=== PATIENT | female | born 1940 | race Caucasian/White ===

== ENCOUNTER 2016-12-19 10:36 | Emergency (ER) | payer OTHER ==
[2016-12-19 11:27] VITALS: BP 186/67; PULSE 84; RESP 16; TEMP 98.1; O2SAT 96
[2016-12-19 11:50] LABS: COLOR YELLOW; LEUKOCYTE ESTERASE,URINE TRACE (NEGATIVE); NITRITE,URINE NEGATIVE (NEGATIVE)
[2016-12-19 12:05] LABS: BACTERIA TRACE /hpf (NONE SEEN); RBC,URINE 0-1 /hpf (0-3); RENAL EPITHELIAL CELLS OCCASIONAL /hpf (NONE SEEN)
--- NOTE | 2016-12-19 13:04 | UCPHY ---
H & P Time Seen by Provider: 12/19/16 12:34 Patient Type: Established HPI/ROS: 75-year-old female presents complaining urinary frequency. No fevers or chills no nausea vomiting diarrhea. No abdominal pain, no flank pain Review of systems General no fever no chills no weakness HEENT no eye pain no eye discharge. No eye redness, no sore throat Respiratory no cough, no shortness of breath Cardiac no chest pain, no peripheral edema GI no abdominal pain, no diarrhea, no constipation, no nausea, no vomiting no flank pain, no hematuria, positive dysuria Musculoskeletal no myalgias, no joint pain Heme no easy bruising, no easy bleeding Endo no polyuria, no polydipsia Skin no rashes, no pruritus Neuro no syncope, no dizziness, no headaches Psych is no suicidal ideation, no homicidal ideation Past Medical/Surgical History: Hypertension Social History: Denies alcohol denies drug use Smoking Status: Never smoked Physical Exam: 75-year-old female Female alert and oriented in no acute distress nontoxic appearance, afebrile Atraumatic normocephalic Neck supple Lungs clear to auscultation bilaterally Heart regular rate and rhythm Abdomen normoactive bowel sounds soft mild suprapubic tenderness no guarding no rebound Back no CVA tenderness Extremities no cyanosis clubbing or edema Skin no rash Constitutional: Initial Vital Signs Temperature (C) 36.7 C 12/19/16 11:21 Heart Rate 84 12/19/16 11:21 Respiratory Rate 16 12/19/16 11:21 Blood Pressure 186/67 H 12/19/16 11:21 O2 Sat (%) 96 12/19/16 11:21 O2 Delivery Mode Room Air Allergies/Adverse Reactions: cimetidine [Cimetidine] Allergy (Severe, Verified 12/19/16 11:20) CHEST PAIN Sulfa (Sulfonamide Antibiotics) Allergy (Severe, Verified 12/19/16 11:20) Swelling/neck,face,throat amlodipine besylate [From Norvasc] Allergy (Verified 12/19/16 11:20) enalapril [Enalapril] Allergy (Verified 12/19/16 11:20) nitrofurantoin Allergy (Verified 12/19/16 11:20) Home Medications: Medication Instructions Recorded Ascorbic Acid [Vitamin C 500 mg 1,000 mg PO DAILY 03/20/14 (*)] Calcium Carbonate/Vitamin D3 1 each PO DAILY 03/20/14 [Calcium 600 + Vit D 400 Softgl] Levothyroxine [Synthroid 125 mcg 125 mcg PO DAILY06 03/20/14 (*)] Lisinopril [Zestril 20 mg (*)] 20 mg PO DAILY 03/20/14 Multivitamins [Multivitamin (*)] 1 each PO DAILY 03/20/14 Vitamin E [Vitamin E 400 units] 400 unit PO DAILY 03/20/14 Cephalexin 500 mg PO TID #21 tablet 12/19/16 Phenazopyridine HCl 200 mg PO TID #6 tab 12/19/16 [Phenazopyridine] Medical Decision Making ED Course/Re-evaluation: Patient seen and evaluated for urinary frequency Physical exam benign No associated symptoms Urine consistent with urinary tract infection Urine culture pending Impression UTI Plan Cephalexin Phenazopyridine Follow-up primary care physician - Data Points Medications Given: Discontinued Medications Cephalexin HCl (Keflex) 500 mg PO EDNOW ONE PRN Reason: Protocol Stop: 12/19/16 13:06 Last Admin: 12/19/16 13:20 Dose: 500 mg Phenazopyridine HCl (Pyridium) 200 mg PO EDNOW ONE Stop: 12/19/16 13:07 Last Admin: 12/19/16 13:20 Dose: 200 mg Departure - Departure Disposition: Home, Routine, Self-Care Clinical Impression: Urinary tract infection Condition: Good Instructions: Urinary Tract Infection in Women (ED) Referrals: Tamar Tyler MD [Primary Care Provider] - As per Instructions Prescriptions: Cephalexin 500 mg PO TID #21 tablet Phenazopyridine HCl [Phenazopyridine] 200 mg PO TID #6 tab - PQRS PQRS Measurement: 134: Depression screening and followup, PRIME MD-PHQ2 (12 years and older) Over the last 2 weeks, how often have you been bothered by any of the following problems? 1. Feeling down, depressed, or hopeless? 2. Little interest or pleasure in doing things? Patient answered no to both 1 and 2 130: Documentation of medications. Reviewed all patient medications, doses, route and frequency. 226: Do you smoke? No. 47: 65 and older: Advanced care planning. Patient designates surrogate decision maker as spouse.. [Patient has advanced directive.] 51: 18 years old and older with diagnosis of COPD, spirometry performance. [Patient has no history of COPD 52: 18 years old and older with COPD and symptoms of COPD or FEV1<60% predicted prescribed a B Agonist. [Spirometry not performed; equipment not available.]
[2016-12-19] MEDS ORDERED: CEPHALEXIN 500 MG CAP PO ONE (13:05)
[2016-12-19] MEDS ORDERED: PHENAZOPYRIDINE HCL 200 MG TAB PO ONE (13:06)
== END 2016-12-19 13:20 | disposition home or self-care (01) ==
LOC: CED 10:36
DX: N39.0 Urinary tract infection, site not specified (principal); I10 Essential (primary) hypertension
CPT/HCPCS: 81003-PO; 81015-PO; G0463-PO

== ENCOUNTER 2017-04-29 12:28 | Inpatient (IN) | payer OTHER ==
[2017-04-29 14:24] LABS: % IMMATURE GRANULYOCYTES 0.3 % (0.0-1.1); ABSOLUTE IMMATURE GRANULOCYTES 0.04 10^3/uL (0.00-0.10); ADD DIFF? NO; ADD MORPH? NO; ADD SCAN? NO; ATYPICAL LYMPHOCYTE FLAG 10 (0-99); FRAGMENT RBC FLAG 0 (0-99); HEMATOCRIT 40.4 % (38.0-47.0); HEMOGLOBIN 13.6 g/dL (12.6-16.3); LEFT SHIFT FLG 0 (0-99); LIPEMIA HEMOLYSIS FLAG 80 (0-99); MEAN CELL HEMOGLOBIN 31.1 pg (27.9-34.1); MEAN CELL HEMOGLOBIN CONCENTR. 33.7 g/dL (32.4-36.7); MEAN CELL VOLUME 92.4 fL (81.5-99.8); MEAN PLATELET VOLUME 9.7 fL (8.7-11.7); PLATELET CLUMPS FLAG 30 (0-99); PLATELET COUNT 265 10^3/uL (150-400); RED BLOOD CELL COUNT 4.37 10^6/uL (4.18-5.33); RED CELL DISTRIBUTION WIDTH 13.2 % (11.5-15.2)
[2017-04-29 14:31] LABS: ALANINE AMINOTRANSFERASE 51 IU/L (9-52); ALBUMIN 4.3 g/dL (3.5-5.0); ALKALINE PHOSPHATASE 102 IU/L (38-126); ANION GAP 13 mEq/L (8-16); ASPARTATE AMINOTRANSFERASE 46 IU/L (14-46); BILIRUBIN,TOTAL 0.8 mg/dL (0.1-1.4); BILIRUBIN-CONJUGATED 0.5 mg/dL (0.0-0.5); BILIRUBIN-UNCONJUGATED 0.3 mg/dL (0.0-1.1); CALCIUM 9.8 mg/dL (8.5-10.4); CARBON DIOXIDE 20 mEq/l (22-31); CHLORIDE 105 mEq/L (97-110); CREATININE 0.8 mg/dL (0.6-1.0); GLOMERULAR FILTRATION RATE > 60; GLUCOSE 101 mg/dL (70-100); SODIUM 138 mEq/L (134-144); TOTAL PROTEIN 7.2 g/dL (6.3-8.2)
--- NOTE | 2017-04-29 14:41 | CPEKG ---
Heart Rate: 80 RR Interval: 750 P-R Interval: 172 QRSD Interval: 138 QT Interval: 424 QTC Interval: 490 P [place]: 60 QRS [place]: -31 T Wave [place]: 11 EKG Severity - ABNORMAL ECG - EKG Impression: SINUS RHYTHM EKG Impression: RIGHT BUNDLE BRANCH BLOCK EKG Impression: PROBABLE INFERIOR INFARCT, AGE INDETERMINATE Electronically Signed By: Renetta Lopez 29-Apr-2017 15:37:30
[2017-04-29 14:43] LABS: TROPONIN I < 0.012 ng/mL (0-0.034)
[2017-04-29 14:45] LABS: INR 1.07 (0.83-1.16); PROTIME(PATIENT) 13.8 SEC (12.0-15.0)
[2017-04-29 14:46] LABS: APTT 24.8 SEC (23.0-38.0)
--- NOTE | 2017-04-29 15:13 | EDPHY ---
H & P Time Seen by Provider: 04/29/17 13:26 HPI/ROS: CHIEF COMPLAINT: Right leg pain and swelling HISTORY OF PRESENT ILLNESS: Patient is a 76-year-old female who presents emergency department with multiple plates. She states over the past 3 weeks she has had increased swelling of her right lower extremity. She also has significant pain over her right upper leg and behind her right knee. She feels as though it is worse when she ambulates. She reports that her leg has become discolored while ambulating. Over the past week she has noticed mild swelling of her left lower extremity as well. She has had no shortness of breath or chest pain. No fevers or chills. No recent travel. No trauma. REVIEW OF SYSTEMS: My complete review of systems is negative except as mentioned in the HPI. Past Medical/Surgical History: Includes coronary artery disease, diabetes type 2, hyperlipidemia, hypertension , hypothyroidism, obesity Past surgical history: Appendectomy, tonsillectomy Social history: Patient does not smoke Smoking Status: Never smoked Physical Exam: 36.4, 179/77, 86, 20, 95% on room air GENERAL: Well-appearing, in no acute distress, alert. Obese. HEENT: Eyes normal to inspection, normal pharynx, no signs of dehydration. NECK: No thyromegaly, no lymphadenopathy, supple. RESPIRATORY: Clear to auscultation bilaterally, no rales, rhonchi or wheezing. CVS: Regular rate and rhythm, no rubs, murmurs, or gallops. ABDOMEN: Soft, nontender, nondistended, no organomegaly. BACK: Normal to inspection, no CVA tenderness. SKIN: Normal color, no rash, warm, dry. No pallor. EXTREMITIES: Mild bilateral pedal edema, right greater than left. Mild tenderness palpation posterior to the right knee. No palpable mass. No calf tenderness, no Homans sign or cords, no joint swelling. There is no erythema or warmth. NEURO/PSYCH: Alert and oriented , normal mood and affect, normal motor sensory exam. No obvious cranial nerve deficit. Constitutional: Initial Vital Signs Temperature (C) 36.4 C 04/29/17 12:33 Heart Rate 86 04/29/17 12:33 Respiratory Rate 20 04/29/17 12:33 Blood Pressure 179/77 H 04/29/17 12:33 O2 Sat (%) 95 04/29/17 12:33 O2 Delivery Mode Room Air Allergies/Adverse Reactions: cimetidine [Cimetidine] Allergy (Severe, Verified 04/29/17 12:32) CHEST PAIN Sulfa (Sulfonamide Antibiotics) Allergy (Severe, Verified 04/29/17 12:32) Swelling/neck,face,throat amlodipine besylate [From Norvasc] Allergy (Verified 04/29/17 12:32) enalapril [Enalapril] Allergy (Verified 04/29/17 12:32) nitrofurantoin Allergy (Verified 04/29/17 12:32) Home Medications: Medication Instructions Recorded Ascorbic Acid [Vitamin C 500 mg 1,000 mg PO DAILY 03/20/14 (*)] Calcium Carbonate/Vitamin D3 1 each PO DAILY 03/20/14 [Calcium 600 + Vit D 400 Softgl] Levothyroxine [Synthroid 125 mcg 125 mcg PO DAILY06 03/20/14 (*)] Lisinopril [Zestril 20 mg (*)] 20 mg PO DAILY 03/20/14 Multivitamins [Multivitamin (*)] 1 each PO DAILY 03/20/14 Vitamin E [Vitamin E 400 units] 400 unit PO DAILY 03/20/14 Medical Decision Making ED Course/Re-evaluation: In the emergency department I discussed possible etiologies with the patient and family. I answered all her questions. IV was placed. Laboratory studies, EKG, chest x-ray and ultrasound right lower extremity were ordered. EKG: Sinus rhythm at 80. Right bundle branch block. Q-wave in III, AVF. I compared this with an old EKG. The Q-waves were previously present and there was a right bundle branch block. I reviewed the patient's laboratory studies. White count was mildly elevated at 12. She is not anemic. Platelets are normal. Her chemistry panel is normal except for mildly low bicarb. Patient's troponin is negative. BNP is normal. Chest x-ray: Please refer to the dictated report. No acute disease noted. I discussed the results with the patient thus far. She stated it was extremely painful in the right lower extremity when she had ultrasound. This made her mildly dizzy. She states that she is unable to move about in her home due to the pain and unsteady gait. I discussed case with the hospitalist service. Patient will be admitted for further observation and care. Differential Diagnosis: My differential includes but is not limited to DVT, Acevedo cyst, peripheral vascular disease, arterial occlusion, cellulitis, CHF, ACS, acute IL, electrolyte abnormality, sugar abnormality - Data Points Laboratory Results: Laboratory Results 04/29/17 14:00 04/29/17 14:00 04/29/17 04/29/17 04/29/17 14:00 14:00 14:00 WBC 12.03 10^3/uL H 10^3/uL (3.80-9.50) RBC 4.37 10^6/uL 10^6/uL (4.18-5.33) Hgb 13.6 g/dL g/dL (12.6-16.3) Hct 40.4 % % (38.0-47.0) MCV 92.4 fL fL (81.5-99.8) MCH 31.1 pg pg (27.9-34.1) MCHC 33.7 g/dL g/dL (32.4-36.7) RDW 13.2 % % (11.5-15.2) Plt Count 265 10^3/uL 10^3/uL (150-400) MPV 9.7 fL fL (8.7-11.7) Neut % (Auto) 63.5 % % (39.3-74.2) Lymph % (Auto) 25.9 % % (15.0-45.0) [place] % (Auto) 8.5 % % (4.5-13.0) Eos % (Auto) 1.4 % % (0.6-7.6) Baso % (Auto) 0.4 % % (0.3-1.7) Nucleat RBC Rel Count 0.0 % % (0.0-0.2) Absolute Neuts (auto) 7.64 10^3/uL H 10^3/uL (1.70-6.50) Absolute Lymphs (auto) 3.11 10^3/uL H 10^3/uL (1.00-3.00) Absolute Monos (auto) 1.02 10^3/uL H 10^3/uL (0.30-0.80) Absolute Eos (auto) 0.17 10^3/uL 10^3/uL (0.03-0.40) Absolute Basos (auto) 0.05 10^3/uL 10^3/uL (0.02-0.10) Absolute Nucleated RBC 0.00 10^3/uL 10^3/uL (0-0.01) Immature Gran % 0.3 % % (0.0-1.1) Immature Gran # 0.04 10^3/uL 10^3/uL (0.00-0.10) PT 13.8 SEC SEC (12.0-15.0) INR 1.07 (0.83-1.16) APTT 24.8 SEC SEC (23.0-38.0) D-Dimer 0.47 ug/mLFEU ug/mLFEU (0.00-0.50) Sodium 138 mEq/L mEq/L (134-144) Potassium 4.0 mEq/L mEq/L (3.5-5.2) Chloride 105 mEq/L mEq/L (97-110) Carbon Dioxide 20 mEq/l L mEq/l (22-31) Anion Gap 13 mEq/L mEq/L (8-16) BUN 12 mg/dL mg/dL (7-23) Creatinine 0.8 mg/dL mg/dL (0.6-1.0) Estimated GFR > 60 Glucose 101 mg/dL H mg/dL (70-100) Calcium 9.8 mg/dL mg/dL (8.5-10.4) Total Bilirubin 0.8 mg/dL mg/dL (0.1-1.4) Conjugated Bilirubin 0.5 mg/dL mg/dL (0.0-0.5) Unconjugated Bilirubin 0.3 mg/dL mg/dL (0.0-1.1) AST 46 IU/L IU/L (14-46) ALT 51 IU/L IU/L (9-52) Alkaline Phosphatase 102 IU/L IU/L (38-126) Troponin I < 0.012 ng/mL ng/mL (0-0.034) NT-Pro-B Natriuret Pep 161 pg/mL pg/mL (0-450) Total Protein 7.2 g/dL g/dL (6.3-8.2) Albumin 4.3 g/dL g/dL (3.5-5.0) Departure - Departure Disposition: [facility] Clinical Impression: Pedal edema, Right leg pain Condition: Good Instructions: Leg Edema (ED), Leg Pain (ED) Additional Instructions: Return with increasing pain, shortness of breath, fever, redness of the leg or any other concerns. Referrals: Tamar Tyler MD [Primary Care Provider] - 1-2 days without fail
[2017-04-29] MEDS ORDERED: NS 1,000 ML IV ONE (15:45)
[2017-04-29] MEDS ORDERED: ONDANSETRON 4 MG/2 ML VIAL IVP ONE (15:45)
[2017-04-29] MEDS ORDERED: ONDANSETRON 4 MG/2 ML VIAL ONE (15:48)
[2017-04-29] MEDS ORDERED: ACETAMINOPHEN 325 MG TAB PO PRN (16:27)
[2017-04-29] MEDS ORDERED: ONDANSETRON 4 MG/2 ML VIAL IVP PRN (16:27)
[2017-04-29] MEDS ORDERED: ONDANSETRON DISINTEGRATING 4 MG TAB PO PRN (16:27)
[2017-04-29] MEDS ORDERED: FUROSEMIDE 40 MG/4 ML VIAL IVP ONE (16:34)
--- NOTE | 2017-04-29 17:13 | PDGENHP ---
History and Physical - Chief Complaint Acute leg pain - History of Present Illness Primary care provider: Dr. Tyler Primary able seaman: Dr. Sánchez HPI: 76-year-old female presenting with acute leg pain characterized as a burning sensation located all along the distal right lower extremity extending into her post patella area and radiating into her proximal inguinal area. It is associated with significant edema and erythema located at the distal right lower extremity. Onset of symptoms was 3 weeks ago and duration has been persistent worsening thereafter. She reports that the pain is exacerbated by ambulating, bearing weight on her right lower extremity, so much so that she is currently unable to ambulate. Several days prior she did note that both of her ankles appear to be discolored as well, described as bluish. Her urine output has remained unchanged, she has not had any overt chest pain, but she has had some shortness of breath which is exacerbated by exertion and she feels like her exercise tolerance is somewhat reduced. She also notes lower abdominal distension and poor appetite. She has not recently changed any of her medications other than recently discontinuing Tylenol after her primary care provider informed her that her liver panel was somewhat abnormal. She does not take any NSAIDs. History Information - Allergies/Home Medication List Allergies/Adverse Reactions: cimetidine [Cimetidine] Allergy (Severe, Verified 04/29/17 12:32) CHEST PAIN Sulfa (Sulfonamide Antibiotics) Allergy (Severe, Verified 04/29/17 12:32) Swelling/neck,face,throat amlodipine besylate [From [facility]] Allergy (Verified 04/29/17 12:32) enalapril [Enalapril] Allergy (Verified 04/29/17 12:32) nitrofurantoin Allergy (Verified 04/29/17 12:32) Home Medications: Ascorbic Acid [Vitamin C 500 mg (*)] 1,000 mg PO DAILY 04/29/17 [Last Taken 07/08] Herbals/Supplements -Info Only 1 ea PO DAILY 04/29/17 [Last Taken Unknown] Levothyroxine [Synthroid 125 mcg (*)] 125 mcg PO DAILY06 04/29/17 [Last Taken ] Lisinopril [Zestril 20 mg (*)] 20 mg PO DAILY 04/29/17 [Last Taken 04/29/17] Multivitamins [Multivitamin (*)] 1 each PO DAILY 04/29/17 [Last Taken 04/29/17] I have personally reviewed and updated: family history, medical history, social history, surgical history - Past Medical History coronary artery disease (With previous cardiac catheterization, no stents placed , does not take aspirin secondary to GERD), diabetes type 2, GERD (With esophageal spasm), hypertension Additional medical history: Diverticulitis. Hypothyroidism - Surgical History Reports: appendectomy - Family History Additional family history: No family history of atrial fibrillation - Social History Smoking Status: Never smoked Alcohol Use: None Drug Use: None Additional social history: Currently cannot walk Review of Systems ROS: 10pt was reviewed & negative except for what was stated in HPI & below Cardiac: Reports: edema (Bilateral lower extremities) Respiratory: Reports: shortness of breath (With exertion) Muscolosketal: Reports: other (Right lower extremity pain) Physical Exam Temp Pulse Resp BP Pulse Ox 37 C 78 20 154/78 H 98 04/29/17 17:03 04/29/17 17:03 04/29/17 17:03 04/29/17 17:03 04/29/17 17:03 Constitutional: no apparent distress, obese, uncomfortable, No not in pain ( Moderate) Eyes: PERRL, anicteric sclera, EOMI Ears, Nose, Mouth, Throat: moist mucous membranes, hearing normal, ears appear normal, no oral mucosal ulcers Cardiovascular: systolic murmur (Distant, 1/6 at the sternum), JVD, edema (2+ right lower extremity, 1+ left lower extremity), No irregularly irregular Respiratory: no respiratory distress, no rales or rhonchi, clear to auscultation Gastrointestinal: normoactive bowel sounds, soft, non-tender abdomen, no palpable masses, distension (Mild to moderate), No guarding Genitourinary: other (Some blistering and skin irritation in the inguinal folds under her pannus) Skin: other (Blanchable erythema right lower extremity from approximately the mid right foot to the mid right calf, no open wounds along the right lower extremity but there are to red papules along the lateral aspect of the right mid calf) Musculoskeletal: other (Over the right lateral trochanteric bursa, in the right post patella area) Neurologic: AAOx3, sensation intact bilaterally, other (Motor exam limited secondary to pain in the lower extremities), No facial droop Psychiatric: not encephalopathic, thought process linear, anxious, No agitated Lab Data & Imaging Review 04/29/17 14:00 04/29/17 14:00 WBC 12.03 10^3/uL (3.80-9.50) H 04/29/17 14:00 RBC 4.37 10^6/uL (4.18-5.33) 04/29/17 14:00 Hgb 13.6 g/dL (12.6-16.3) 04/29/17 14:00 Hct 40.4 % (38.0-47.0) 04/29/17 14:00 MCV 92.4 fL (81.5-99.8) 04/29/17 14:00 MCH 31.1 pg (27.9-34.1) 04/29/17 14:00 MCHC 33.7 g/dL (32.4-36.7) 04/29/17 14:00 RDW 13.2 % (11.5-15.2) 04/29/17 14:00 Plt Count 265 10^3/uL (150-400) 04/29/17 14:00 MPV 9.7 fL (8.7-11.7) 04/29/17 14:00 Neut % (Auto) 63.5 % (39.3-74.2) 04/29/17 14:00 Lymph % (Auto) 25.9 % (15.0-45.0) 04/29/17 14:00 [place] % (Auto) 8.5 % (4.5-13.0) 04/29/17 14:00 Eos % (Auto) 1.4 % (0.6-7.6) 04/29/17 14:00 Baso % (Auto) 0.4 % (0.3-1.7) 04/29/17 14:00 Nucleat RBC Rel Count 0.0 % (0.0-0.2) 04/29/17 14:00 Absolute Neuts (auto) 7.64 10^3/uL (1.70-6.50) H 04/29/17 14:00 Absolute Lymphs (auto) 3.11 10^3/uL (1.00-3.00) H 04/29/17 14:00 Absolute Monos (auto) 1.02 10^3/uL (0.30-0.80) H 04/29/17 14:00 Absolute Eos (auto) 0.17 10^3/uL (0.03-0.40) 04/29/17 14:00 Absolute Basos (auto) 0.05 10^3/uL (0.02-0.10) 04/29/17 14:00 Absolute Nucleated RBC 0.00 10^3/uL (0-0.01) 04/29/17 14:00 Immature Gran % 0.3 % (0.0-1.1) 04/29/17 14:00 Immature Gran # 0.04 10^3/uL (0.00-0.10) 04/29/17 14:00 PT 13.8 SEC (12.0-15.0) 04/29/17 14:00 INR 1.07 (0.83-1.16) 04/29/17 14:00 APTT 24.8 SEC (23.0-38.0) 04/29/17 14:00 D-Dimer 0.47 ug/mLFEU (0.00-0.50) 04/29/17 14:00 Sodium 138 mEq/L (134-144) 04/29/17 14:00 Potassium 4.0 mEq/L (3.5-5.2) 04/29/17 14:00 Chloride 105 mEq/L (97-110) 04/29/17 14:00 Carbon Dioxide 20 mEq/l (22-31) L 04/29/17 14:00 Anion Gap 13 mEq/L (8-16) 04/29/17 14:00 BUN 12 mg/dL (7-23) 04/29/17 14:00 Creatinine 0.8 mg/dL (0.6-1.0) 04/29/17 14:00 Estimated GFR > 60 04/29/17 14:00 Glucose 101 mg/dL (70-100) H 04/29/17 14:00 Calcium 9.8 mg/dL (8.5-10.4) 04/29/17 14:00 Total Bilirubin 0.8 mg/dL (0.1-1.4) 04/29/17 14:00 Conjugated Bilirubin 0.5 mg/dL (0.0-0.5) 04/29/17 14:00 Unconjugated Bilirubin 0.3 mg/dL (0.0-1.1) 04/29/17 14:00 AST 46 IU/L (14-46) 04/29/17 14:00 ALT 51 IU/L (9-52) 04/29/17 14:00 Alkaline Phosphatase 102 IU/L (38-126) 04/29/17 14:00 Troponin I < 0.012 ng/mL (0-0.034) 04/29/17 14:00 NT-Pro-B Natriuret Pep 161 pg/mL (0-450) 04/29/17 14:00 Total Protein 7.2 g/dL (6.3-8.2) 04/29/17 14:00 Albumin 4.3 g/dL (3.5-5.0) 04/29/17 14:00 Visualized and Interpreted Chest x-ray results: Yes Chest X-Ray results: no infiltrate Visualized and Interpreted EKG results: Yes EKG Interpretation: Positive for: other (Right bundle branch block) Assessment & Plan Assessment: 76-year-old female presenting with acute suspected CHF exacerbation as well as possible concomitant cellulitis Plan: 1. Suspected diastolic CHF exacerbation. Acute, new problem this provider, further workup indicated. Evidenced by elevated systolic blood pressure in the 170s, lower extremity edema and abdominal swelling, suspect right-sided component given relatively clear chest x-ray but positive JVD, no recent echocardiograms. -get echocardiogram -if echo demonstrates obvious cause of her CHF, then no further workup but if the echo is relatively normal, then would recommend Lexiscan stress test given her known CAD and recent dyspnea on exertion, reduced exercise tolerance -suspect that her BNP is low secondary to her obesity -discussed with Dr. Lopez in the emergency department, he has reported to me that the ultrasound does not demonstrate any evidence of DVT although was a suboptimal study secondary to patient's pain with probe pressure -suspect that she has underlying sleep apnea and would benefit from outpatient sleep study, declining CPAP at this time -begin IV Lasix 40 mg twice daily, gauge effect, monitor daily weights, monitor potassium, magnesium, creatinine -hold lisinopril while diuresing, initiate once she is more euvolemic -hold on cardiology consultation until echo has been performed and is determine whether she has a clear cause of her edema 2. Possible cellulitis. Right lower extremity, in the setting of edema, evidenced by erythema, tenderness, several papules which may have been the source of skin breakage -she has not had any recent hospitalizations or identifiable MRSA exposures, placed on Ancef 2 g q.8h and monitor affect -continue to monitor CBC, currently has leukocytosis 3. Chronic coronary artery disease. Continue home medications, consider Lexiscan stress as outlined above -patient is not currently on aspirin secondary to GERD and esophageal spasm 4. GERD and esophageal spasm. Continue home medications once reconciled 5. Transaminitis. Patient reports she has hepatic steatosis although some of her transaminitis may be secondary to biliary and hepatic dilatation with fluid overload -order outside records from Dr. Matthews and repeat complete metabolic profile Diet. Cardiac Prophylaxis. High risk patient, Lovenox 40 Code. Full per patient, her and son are MPOA jointly Disposition. Anticipated discharge is uncertain this time, anticipated length stay is greater than 48 hours warranting inpatient admission status for acute CHF exacerbation, warranting further workup and IV diuretic treatment. I accidentally placed in observation order incorrectly and the patient should be inpatient admission status from the time of my initial admission order set.
[2017-04-29] MEDS: ceFAZolin 2 GM/DEXTROSE 100 ML IV SCH ×2 (18:06→22:12)
[2017-04-29] MEDS: NYSTATIN POWDER 15 GM BTL TP SCH (23:48)
[2017-04-30] MEDS: ceFAZolin 2 GM/DEXTROSE 100 ML IV SCH ×3 (05:29→22:35)
[2017-04-30 05:41] LABS: % IMMATURE GRANULYOCYTES 0.1 % (0.0-1.1); ABSOLUTE IMMATURE GRANULOCYTES 0.01 10^3/uL (0.00-0.10); ADD DIFF? NO; ADD MORPH? NO; ADD SCAN? NO; ATYPICAL LYMPHOCYTE FLAG 0 (0-99); FRAGMENT RBC FLAG 0 (0-99); HEMOGLOBIN 13.2 g/dL (12.6-16.3); LEFT SHIFT FLG 0 (0-99); LIPEMIA HEMOLYSIS FLAG 90 (0-99); MEAN CELL HEMOGLOBIN 31.2 pg (27.9-34.1); MEAN CELL HEMOGLOBIN CONCENTR. 33.8 g/dL (32.4-36.7); MEAN CELL VOLUME 92.2 fL (81.5-99.8); MEAN PLATELET VOLUME 9.7 fL (8.7-11.7); PLATELET CLUMPS FLAG 0 (0-99); PLATELET COUNT 289 10^3/uL (150-400); RED BLOOD CELL COUNT 4.23 10^6/uL (4.18-5.33); RED CELL DISTRIBUTION WIDTH 13.4 % (11.5-15.2)
[2017-04-30 05:54] LABS: ALANINE AMINOTRANSFERASE 48 IU/L (9-52); ALBUMIN 4.2 g/dL (3.5-5.0); ALKALINE PHOSPHATASE 89 IU/L (38-126); ANION GAP 15 mEq/L (8-16); ASPARTATE AMINOTRANSFERASE 38 IU/L (14-46); BILIRUBIN,TOTAL 0.8 mg/dL (0.1-1.4); CALCIUM 9.8 mg/dL (8.5-10.4); CARBON DIOXIDE 21 mEq/l (22-31); CHLORIDE 103 mEq/L (97-110); CREATININE 0.9 mg/dL (0.6-1.0); GLOMERULAR FILTRATION RATE > 60; GLUCOSE 133 mg/dL (70-100); MAGNESIUM 1.9 mg/dL (1.6-2.3); POTASSIUM 4.7 mEq/L (3.5-5.2); SODIUM 139 mEq/L (134-144)
[2017-04-30] MEDS ORDERED: LEVOTHYROXINE 125 MCG TAB PO SCH (06:00)
[2017-04-30] MEDS: ASCORBIC ACID 500 MG TAB PO SCH (08:14)
[2017-04-30] MEDS: ENOXAPARIN 40 MG/0.4 ML SYR SC SCH (08:14)
[2017-04-30] MEDS: MULTIVITAMINS 1 EACH TAB PO SCH (08:15)
[2017-04-30] MEDS: NYSTATIN POWDER 15 GM BTL TP SCH ×3 (08:18→22:35)
[2017-04-30] MEDS ORDERED: Herbals/Supplements -Info Only PO SCH (09:00)
[2017-04-30] MEDS ORDERED: FUROSEMIDE 40 MG/4 ML VIAL IVP SCH (09:00)
[2017-04-30] MEDS ORDERED: NS 1,000 ML IV ONE (11:55)
--- NOTE | 2017-04-30 13:31 | HOSPPROG ---
Hospitalist Progress Note Assessment/Plan: DIAGNOSES: -Acute right-sided congestive heart failure -Cellulitis of right leg -Known chronic pulmonary hypertension -Strongly suspect sleep apnea - undertreated hypothyroidism -Obesity I did review her hospital records from a visit here in 2009. At that time she had documented moderately severe pulmonary hypertension with right heart catheter. I believe she has sleep apnea and possibly obesity hypoventilation syndrome leading to chronic and worsening pulmonary hypertension. This is lead at this time to right-sided heart failure which has led to her developing the cellulitis in her right leg at this time. I reviewed all of this in great detail with the patient and her family at the bedside today PLANS: - continue diuresis for now -Elevation of legs, compression stockings, low-salt diet: I reviewed in detail with the patient and her family that she will need to continue these measures at home as well -Continue current antibiotics -Await echocardiogram results -Nocturnal oxygen use here, and if this does not prevent hypoxemia we can have her use some CPAP or BiPAP here -she should be referred to [facility] for evaluation for sleep apnea as an outpatient - I did discuss with the patient and family the importance of weight loss as well - will increase her thyroid dose and she will need retesting of her thyroid in 6 weeks SUBJECTIVE: she still has quite a bit of pain in her right leg but it is less than yesterday Her exertional dyspnea is slightly better today than yesterday OBJECTIVE Vitals reviewed: stable without fever so far today Exam: alert oriented still with some jugular venous distention skin warm dry color ok resps not labored lungs clear BSs heart regular abd soft nondistended nontender, bowel sounds present limbs she still has some pitting edema of both legs, but her cellulitis is notably decreased compared to yesterday iv site ok TSH 11.9 otherwise laboratory data stable Objective: Vital Signs Temp Pulse Resp BP Pulse Ox 36.4 C 64 16 130/65 H 99 04/30/17 07:37 04/30/17 12:04 04/30/17 12:04 04/30/17 12:04 04/30/17 12:04 Laboratory Results 04/30/17 05:15 04/30/17 05:15 04/29/17 04/30/17 05/01/17 06:59 06:59 06:59 Intake Total 1400 Output Total 3970 400 Balance -2570 -400 PT 13.8 SEC (12.0-15.0) 04/29/17 14:00 INR 1.07 (0.83-1.16) 04/29/17 14:00 - Time Spent With Patient Time Spent with Patient: greater than 35 minutes Time Spent with Patient: Greater than 35 minutes spent on this patients care, greater than 50% of time spent counseling, educating, and coordinating care regarding the above mentioned plan. ICD10 Worksheet Patient Problems: Problems Problem Status Onset Chronic Disease Mgmt/Transitional Care Acute Pedal edema Acute Right leg pain Acute Abdominal pain Acute
[2017-04-30] MEDS: FUROSEMIDE 20 MG/2 ML VIAL IVP SCH (14:37)
--- NOTE | 2017-04-30 16:12 | ECHO ---
[id number] + + [address] : : [place] [address] : : [phone] + + Adult Echocardiographic Report + ------+ :Name: LUPE ZELAYA Kamiudy Date: 04/30/2017 07:58 AM : : Hospital Admission Number: [id number] Locatio n: 384: :: 1940 Gender: Female Height: 65 in : :Age: 76 yrs Race: WH Weight: 215 lb : :Reason For Study: Eval LV and RV function : : BSA: 2.0 meters 2 : :History: LE Edema : + ------+ MMode/2D Measurements \T\ Calculations IVSd: 0.90 cm LVIDd: 4.4 cm FS: 38.9 % Ao root diam: 3.0 cm LVPWd: 1.2 cm LVIDs: 2.7 cm EDV(Teich): 85.9 ml ACS: 1.7 cm ESV(Teich): 26.2 ml EF(Teich): 69.5 % Normal Measurement Values: + + :LVIDd (3.5-5.7cm) IVSd (0.6-1.1cm) LVPWd (0.6-1.1cm) Aortic Root (2.0-3.7cm)Left Atrium (1.5-4.0cm): :LV Vol(d) (76-115ml) LV Vol(s) (29-48ml) Ejec Fraction (50-65%)PV Dave (0.6- 1.2m/s) TV Dave (0.4-1.0m/s) : :MV E Dave (0.8-1.0m/s)MV A Dave (0.3-1.0m/s)LVOT Dave (0.7-1.2m/s) Asc Ao Dave ( 0.9-1.8m/s) : + + Doppler Measurements \T\ Calculations MV E max dave: Ao V2 max: LV V1 max: PA V2 max: 56.3 cm/sec 129.0 cm/sec 73.5 cm/sec 82.8 cm/sec MV A max dave: Ao max P.7 mmHg LV V1 max PG: PA max P.4 cm/sec 2.2 mmHg 2.7 mmHg MV E/A: 0.64 Left Ventricle The left ventricle is normal in size. There is mild concentric left ventricular hypertrophy. The left ventricular ejection fraction is normal. There is Doppler evidence for diastolic dysfunction. Ejection Fraction = 70%. The left ventricular wall motion is normal. Right Ventricle The right ventricle is normal in size and function. Atria The left atrial size is normal. Right atrial size is normal. Mitral Valve The mitral valve is normal in structure and function. There is no evidence of mitral valve prolapse. There is no mitral valve stenosis. There is trace mitral regurgitation. Tricuspid Valve Normal tricuspid valve. There is trace tricuspid regurgitation. Right ventricular systolic pressure is normal. Aortic Valve There is mild aortic valve calcification. There is no aortic stenosis. Trace aortic regurgitation. Pulmonic Valve The pulmonic valve is normal in structure and function. There is no pulmonic valvular regurgitation. Great Vessels The aortic root is normal size. Pericardium/Pleural There is no pericardial effusion. There is a fat pad seen. Conclusion A complete two-dimensional transthoracic echocardiogram was performed (2D, M-mode, Doppler and color flow Doppler). There is mild concentric left ventricular hypertrophy. The left ventricular ejection fraction is normal. Ejection Fraction = 70%. The left ventricular wall motion is normal. There is Doppler evidence for diastolic dysfunction. The right ventricle is normal in size and function. The left atrial size is normal. Right atrial size is normal. The mitral valve is normal in structure and function. There is trace mitral regurgitation. Normal tricuspid valve There is trace tricuspid regurgitation. Right ventricular systolic pressure is normal. There is mild aortic valve calcification. Trace aortic regurgitation. There is no pericardial effusion. There is a fat pad seen. Final Reading Physician: Angie Alves signed on 04/30/2017 04:11 PM Ordering Physician: Gaudencio Guido Performed By: Burak Crews, OMARCS
--- NOTE | 2017-04-30 17:13 | HOSPPROG ---
Hospitalist Progress Note Assessment/Plan: ADDENDUM NOTE Her echocardiogram is read today as having normal R heart pressures and RV function. However, in 2009 here she had R heart cath with moderate pulm HTN with systolic at 47 - given her clinical picture and her obesity and noctural hypoxemia seen here overnight, I believe the echocardiogram is very likely giving a false normal reading today. She is obese which could interfere with accurate assessment of pulm pressures by echo. DIAGNOSES: -Acute right-sided congestive heart failure -Cellulitis of right leg -Known chronic pulmonary hypertension -Strongly suspect sleep apnea - undertreated hypothyroidism -Obesity I did review her hospital records from a visit here in 2009. At that time she had documented moderately severe pulmonary hypertension with right heart catheter. I believe she has sleep apnea and possibly obesity hypoventilation syndrome leading to chronic and worsening pulmonary hypertension. This is lead at this time to right-sided heart failure which has led to her developing the cellulitis in her right leg at this time. I reviewed all of this in great detail with the patient and her family at the bedside today PLANS: - continue diuresis for now -Elevation of legs, compression stockings, low-salt diet: I reviewed in detail with the patient and her family that she will need to continue these measures at home as well -Continue current antibiotics -Await echocardiogram results -Nocturnal oxygen use here, and if this does not prevent hypoxemia we can have her use some CPAP or BiPAP here -she should be referred [facility] for evaluation for sleep apnea as an outpatient - I did discuss with the patient and family the importance of weight loss as well - will increase her thyroid dose and she will need retesting of her thyroid in 6 weeks SUBJECTIVE: she still has quite a bit of pain in her right leg but it is less than yesterday Her exertional dyspnea is slightly better today than yesterday OBJECTIVE Vitals reviewed: stable without fever so far today Exam: alert oriented still with some jugular venous distention skin warm dry color ok resps not labored lungs clear BSs heart regular abd soft nondistended nontender, bowel sounds present limbs she still has some pitting edema of both legs, but her cellulitis is notably decreased compared to yesterday iv site ok TSH 11.9 otherwise laboratory data stable Objective: Vital Signs Temp Pulse Resp BP Pulse Ox 36.7 C 77 16 151/69 H 93 04/30/17 15:54 04/30/17 15:54 04/30/17 15:54 04/30/17 15:54 04/30/17 15:54 Laboratory Results 04/30/17 05:15 04/30/17 05:15 04/29/17 04/30/17 05/01/17 06:59 06:59 06:59 Intake Total 1400 Output Total 3970 400 Balance -2570 -400 PT 13.8 SEC (12.0-15.0) 04/29/17 14:00 INR 1.07 (0.83-1.16) 04/29/17 14:00 ICD10 Worksheet Patient Problems: Problems Problem Status Onset Chronic Disease [facility]itional [facility] Acute Pedal edema Acute Right leg pain Acute Abdominal pain Acute
[2017-05-01] MEDS: ceFAZolin 2 GM/DEXTROSE 100 ML IV SCH ×2 (05:27→16:13)
[2017-05-01 05:45] LABS: % IMMATURE GRANULYOCYTES 0.1 % (0.0-1.1); ABSOLUTE IMMATURE GRANULOCYTES 0.01 10^3/uL (0.00-0.10); ADD DIFF? NO; ADD MORPH? NO; ADD SCAN? NO; ATYPICAL LYMPHOCYTE FLAG 0 (0-99); FRAGMENT RBC FLAG 0 (0-99); HEMATOCRIT 40.5 % (38.0-47.0); HEMOGLOBIN 13.7 g/dL (12.6-16.3); LEFT SHIFT FLG 0 (0-99); LIPEMIA HEMOLYSIS FLAG 90 (0-99); MEAN CELL HEMOGLOBIN 31.2 pg (27.9-34.1); MEAN CELL HEMOGLOBIN CONCENTR. 33.8 g/dL (32.4-36.7); MEAN CELL VOLUME 92.3 fL (81.5-99.8); MEAN PLATELET VOLUME 9.6 fL (8.7-11.7); PLATELET CLUMPS FLAG 0 (0-99); PLATELET COUNT 287 10^3/uL (150-400); RED BLOOD CELL COUNT 4.39 10^6/uL (4.18-5.33); RED CELL DISTRIBUTION WIDTH 13.2 % (11.5-15.2)
[2017-05-01] MEDS ORDERED: LEVOTHYROXINE 137 MCG TAB PO SCH (06:00)
[2017-05-01] MEDS: ASCORBIC ACID 500 MG TAB PO SCH (08:56)
[2017-05-01] MEDS: MULTIVITAMINS 1 EACH TAB PO SCH (08:56)
[2017-05-01] MEDS: ENOXAPARIN 40 MG/0.4 ML SYR SC SCH (08:56)
[2017-05-01] MEDS: FUROSEMIDE 20 MG/2 ML VIAL IVP SCH ×2 (08:57→16:13)
[2017-05-01] MEDS: NYSTATIN POWDER 15 GM BTL TP SCH (09:06)
[2017-05-01 11:24] VITALS: BP 156/88; PULSE 77; RESP 16; TEMP 98.1; O2SAT 95
--- NOTE | 2017-05-01 15:47 | GDS ---
[f rep st] DISCHARGE SUMMARY DIAGNOSES: 1. Suspected obstructive sleep apnea. 2. Acute congestive heart failure with preserved ejection fraction. 3. Improving right leg cellulitis. 4. Undertreated hypothyroidism. 5. Obesity. 6. 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 7. Osteoarthritis of the knee. HOSPITAL COURSE AND STAY BY PROBLEM: Acute heart failure with preserved ejection fraction: The marisela wells was admitted to the hospital where she has received IV Lasix for leg swelling. An echocardiogr am done on 04/29/2017, revealed an ejection fraction of 70%. No evidence for diastolic dysfunction. On day of discharge, she appears to be rather euvolemic. She has been treated for cellulitis in h er right foot and ankle, which could very well be due to stasis dermatitis. However, it is hard for me to make that assessment at the time of discharge since I have only seen her once. She has been treated with IV cefazolin and will be discharged on Keflex to complete 7 days of antibiotics. Durin g her hospital stay her TSH was noted to be elevated at 11.9 and subsequently her home dose of levot hyroxine was increased on 37 mcg per day. On day of discharge, she was complaining of some pain beh ind her right knee, which I suspect is due to a Acevdeo cyst. She was instructed to ambulate as chetan ated and apply an Wade wrap. PHYSICAL EXAM: VITAL SIGNS: On the day of discharge, blood pressure 136/88, pulse 77, respiratory rate 16, O2 sat 95% on room air. EXTREMITIES: The right lower extremity is without erythema. Righ t knee is mildly swollen, it is tender to touch but is not warm or red. DIAGNOSTICS DURING THIS HOSPITAL STAY: Knee x-ray done 04/29/2017, was reviewed and it was negative for fracture or acute abnormality. Echocardiogram done 04/29/2017, refer to report. Lower extremi ty Doppler done 04/29/2017, was negative for DVT. DISCHARGE MEDICATIONS: Please refer to discharge medication reconciliation in [facility] for full det ails. Below is a preliminary list. NEW MEDICATIONS ON HOSPITAL DISCHARGE: 1. Synthroid was increased from 125 mcg to 137 mcg per day. 2. Keflex 500 mg p.o. three times daily for 4 more days to complete 7 days of treatment. 3. Lasix 40 mg p.o. daily to be used as needed for increasing swelling or weight gain. All other home medications were continued at their usual home dosages. DISCHARGE INSTRUCTIONS: The patient will be discharged from the hospital where she should follow up with her primary care provider in the next week or so for routine hospital followup. She should conway ve further workup and treatment for suspected underlying obstructive sleep apnea. Greater than 30 minutes was spent on the discharge of this patient. /[id number]/MODL
== END 2017-05-01 15:53 | disposition home or self-care (01) | DRG 603 ==
LOC: OBSVTOIN 16:27 → F3E 17:08
PROVIDERS: ADMIT Internal Medicine; ATTEND Internal Medicine
DX: L03.115 Cellulitis of right lower limb (principal); I50.9 Heart failure, unspecified; M71.21 Synovial cyst of popliteal space [Baker], right knee; M17.11 Unilateral primary osteoarthritis, right knee; E03.9 Hypothyroidism, unspecified; G47.33 Obstructive sleep apnea (adult) (pediatric); I27.2 Other secondary pulmonary hypertension; E11.9 Type 2 diabetes mellitus without complications; E78.5 Hyperlipidemia, unspecified; I25.10 Atherosclerotic heart disease of native coronary artery without angina pectoris; E66.9 Obesity, unspecified; Z68.35 Body mass index [BMI] 35.0-35.9, adult
CPT/HCPCS: 96374; 97110-GP; 97116-GP; 97161-GP; G8978-GP-CJ; G8979-GP-CJ; J0690; J1650; J1940; J2405

== ENCOUNTER → 2017-05-31 | Outpatient (CLI) | payer OTHER | LOC: FIMAGING 13:11 | PROVIDERS: ATTEND Orthopaedic Surgery Sports Medicine | DX: M23.221 Derangement of posterior horn of medial meniscus due to old tear or injury, right knee (principal); M24.10 Other articular cartilage disorders, unspecified site; M23.8X1 Other internal derangements of right knee; M22.41 Chondromalacia patellae, right knee; M25.461 Effusion, right knee; M76.891 Other specified enthesopathies of right lower limb, excluding foot; M25.561 Pain in right knee ==